=== PATIENT | female | born 2000 | race Caucasian/White ===

== ENCOUNTER 2021-09-23 05:26 | Emergency (ER) | payer SELFPAY ==
[~2021-09-23] VITALS: Ht 165.1 cm; Wt 61.2 kg
--- NOTE | 2021-09-23 05:55 | NUR ---
[facility] PT FOUND UNRESPONSIVE IN HOTEL, GIVEN NASAL NARCAN, THEN 1MG IV NARCAN. PT CRYING AND REFUSING TO ANSWER QUESTIONS
[2021-09-23 06:00] VITALS: BP 127/58
--- NOTE | 2021-09-23 06:15 | NUR ---
PATIENT ELOPED FROM ER. PATIENTS IV LINE WAS STILL INTACT POLICE WILL BE NOTIFIED. LAST SEEN AT 0610. NOTIFIED.
--- NOTE | 2021-09-23 06:20 | NUR ---
THERAPIST OCCUPATIONAL 301 TOOK REPORT. OFFICERS BEING DISPATCHED NOW.
[2021-09-23 06:21] LABS: BASOPHILS # (AUTO) 0.1 K/uL (0.0-0.2); BASOPHILS % (AUTO) 0.6 % (0.0-2.0); EOSINOPHILS % (AUTO) 0.8 % (0.0-6.0); HEMATOCRIT 42 % (33-45); HEMOGLOBIN 13.9 g/dL (11.5-14.8); LYMPHOCYTES # (AUTO) 1.5 K/uL (0.8-4.8); LYMPHOCYTES % (AUTO) 17.8 % (20.0-44.0); MEAN CORPUSCULAR HGB CONC 33 g/dl (31.0-36.0); MEAN CORPUSCULAR VOLUME 90 fL (82-100); MONOCYTES # (AUTO) 0.7 K/uL (0.1-1.30); NEUTROPHILS # (AUTO) 5.8 K/uL (1.8-8.9); NEUTROPHILS % (AUTO) 71.8 % (43.0-81.0); PLATELET COUNT (AUTO) 339 K/uL (150-450); RED BLOOD CELL COUNT(AUTO) 4.73 MIL/uL (4.0-5.2); WHITE BLOOD COUNT (AUTO) 8.1 K/uL (4.3-11.0)
[2021-09-23] MEDS ORDERED: IV NS 0.9% 500 ML BAG IV ONE (06:30)
[2021-09-23 09:57] LABS: ALANINE AMINOTRANSFERASE 66 U/L (12-78); ALBUMIN 4.1 g/dL (3.4-5.0); ALKALINE PHOSPHATASE 100 U/L (46-116); ASPARTATE AMINOTRANSFERASE 79 U/L (15-37); BILIRUBIN,DIRECT 0.1 mg/dL (0.0-0.2); BILIRUBIN,TOTAL 0.2 mg/dL (0.2-1.0); CALCIUM, SERUM 9.4 mg/dL (8.5-10.1); CARBON DIOXIDE 25 mmol/L (21-32); CHLORIDE 104 mmol/L (98-107); CREATININE 0.9 mg/dL (0.6-1.3); POTASSIUM 3.9 mmol/L (3.5-5.1); SODIUM SERUM 140 mmol/L (136-145); TOTAL PROTEIN, SERUM 8.9 g/dL (6.4-8.2); UREA NITROGEN, BLOOD 17 mg/dL (7-18)
[2021-09-23 10:14] LABS: ACETAMINOPHEN < 0 ug/ml (10-30); ALCOHOL, BLOOD < 3 mg/dL (0-0); GLUCOSE 41 mg/dL (74-106)
== END 2021-09-23 06:38 | disposition left against medical advice (07) ==
LOC: ER 06:24
DX: R07.89 Other chest pain (principal); R06.02 Shortness of breath
CPT/HCPCS: 36415; 80048-TC; 80076-TC; 84484-TC; 84702-TC; 85025-TC; G0480